=== PATIENT | female | born 1975 | race African-American/Black ===

== ENCOUNTER 2018-09-03 00:06 | Emergency (ER) | payer SELFPAY ==
[~2018-09-03] VITALS: Ht 172.7 cm; Wt 91.0 kg
[2018-09-03 01:33] LABS: CLARITY URINE CLEAR (CLEAR); COLOR URINE YELLOW (YELLOW); KETONES URINE NEGATIVE (NEGATIVE); LEUKOCYTE ESTERASE URINE NEGATIVE (NEGATIVE); NITRITE URINE NEGATIVE (NEGATIVE); OCCULT BLOOD URINE NEGATIVE (NEGATIVE); PH URINE 7.5 (4.5-8.0); PROTEIN URINE NEGATIVE (NEGATIVE); UROBILINOGEN URINE 0.2 E.U./dL (0.2-1.0)
[2018-09-03 01:46] LABS: BASOPHILS % 0.7 % (0.0-2.0); EOSINOPHILS % 0.2 % (0.0-5.0); HEMATOCRIT. 37.4 % (36.0-48.0); HEMOGLOBIN. 12.5 g/dL (12.0-16.0); LYMPHOCYTES % 13.7 % (20.0-50.0); MEAN CORPUSCULAR HEMOGLOBIN 28.3 pg (28.0-32.0); MEAN CORPUSCULAR VOLUME 84.6 fL (81.0-99.0); MEAN PLATELET VOLUME 9.7 fl (7.4-10.4); MONOCYTES % 3.3 % (2.0-8.0); NEUTROPHILS % 82.1 % (40.0-76.0); PLATELET 210 x1000/uL (130-400); RED BLOOD CELL COUNT 4.42 mill/uL (4.2-5.4); RED CELL DISTRIBUTION WIDTH 16.1 % (11.6-14.6)
[2018-09-03 01:50] LABS: CHLORIDE 109 mEq/L (98-107); HCG SCREEN NEGATIVE
[2018-09-03 01:51] LABS: PARTIAL THROMBOPLASTIN TIME 28.9 sec (23.4-31.0)
[2018-09-03 06:00] VITALS: BP 139/72
== END 2018-09-03 06:00 | disposition home or self-care (01) ==
LOC: ER 01:17
DX: S02.32XA Fracture of orbital floor, left side, initial encounter for closed fracture (principal); S00.81XA Abrasion of other part of head, initial encounter; F10.129 Alcohol abuse with intoxication, unspecified; F31.9 Bipolar disorder, unspecified; Y08.89XA Assault by other specified means, initial encounter; Y93.89 Activity, other specified; Y92.89 Other specified places as the place of occurrence of the external cause; Y99.8 Other external cause status; Y90.7 Blood alcohol level of 200-239 mg/100 ml
CPT/HCPCS: 36415; 70486; 80320; 81025; 82962; 84703; 86850; 86900; 99284; G0480